=== PATIENT | female | born 1955 | race Caucasian/White ===

== ENCOUNTER 2021-05-03 07:02 | Day surgery (SDC) | payer MEDICARE ==
[~2021-05-03] VITALS: Ht 167.6 cm; Wt 68.0 kg
[~2021-05-03 07:02] MED LIST: AMLODIPINE BESY10 MG PO; HYDROCHLOROT12.5 MG PO; KLOR-CON M2020 MEQ PO; SIMVASTATIN40 MG PO; SYNTHROID150 MCG PO
[2021-05-03] MEDS ORDERED: MUSCLE RELAXANT (07:22)
[2021-05-03 09:01] VITALS: BP 152/69
== END 2021-05-03 09:14 | disposition home or self-care (01) ==
LOC: ENDO 07:02 → ORM 08:00 → ENDO 08:00 → ORM 08:45 → ENDO 09:14 → ORM 09:45
PROVIDERS: ATTEND Surgery
PROC: 0DBM8ZX Excision of Descending Colon, Via Natural or Artificial Opening Endoscopic, Diagnostic (ICD-10-PCS; principal; 2021-05-03)
DX: Z12.11 Encounter for screening for malignant neoplasm of colon (principal); D12.4 Benign neoplasm of descending colon; I10 Essential (primary) hypertension; Z90.49 Acquired absence of other specified parts of digestive tract; Z85.038 Personal history of other malignant neoplasm of large intestine

== ENCOUNTER 2022-04-29 19:48 | Inpatient (IN) | payer MEDICARE ==
[~2022-04-29] VITALS: Ht 167.6 cm; Wt 70.4 kg
[2022-04-29] VITALS (15 sets, daily range): BP systolic 120–161; BP diastolic 62–117
[~2022-04-29 19:48] MED LIST changes: +MUSCLE RELAXANT
[2022-04-29 20:41] LABS: BASO% 0.2 % (0-3); EOS% 0.2 % (0-8); HEMATOCRIT 44.9 % (37.0-47.0); HEMOGLOBIN 14.6 g/dl (12.0-16.0); IMMATURE GRANULOCYTES 0.2 % (0.0-5.0); LYMPH% 3.7 % (15-41); MEAN CELL VOLUME 91.6 fL CALC (80.0-100.0); MEAN CORPUSCULAR HGB 29.8 pG CALC (26.0-32.0); MEAN CORPUSCULAR HGB CONC 32.5 g/dL CAL (32.0-36.0); MONO% 5.5 % (2-13); NEUT# 10.89 thou/uL (2.00-7.15); NEUT% 90.2 % (42-76); RED BLOOD COUNT 4.9 mill/uL (4.20-5.60); RED CELL DISTRI WIDTH 12.2 % (11.5-15.5)
[2022-04-29 20:42] LABS: ALBUMIN 4.6 g/dL (3.2-5.0); ALKALINE PHOSPHATASE 152 u/l (38-126); AMYLASE 167 u/l (30-110); ANION GAP 12 (6-22 (CALC)); BILIRUBIN, TOTAL 0.8 mg/dL (0.02-1.3); BUN 21 mg/dL (8-23); BUN/CREATININE RATIO 33 (12-20 (CALC)); CARBON DIOXIDE 27 mmol/l (22-30); CHLORIDE 103 mmol/l (95-108); CREATININE 0.6 mg/dL (0.5-1.0); GFR FOR AFR.AMER. > 60 ML/MIN (>=60 (CALC)); GFR OTHER RACES > 60 ML/MIN (>=60 (CALC)); LIPASE 913 u/l (23-300); POTASSIUM 4.1 mmol/l (3.5-5.1); SODIUM 138 mmol/l (137-146); TOTAL PROTEIN 7.4 g/dL (6.3-8.2)
[2022-04-29 20:59] LABS: SGOT/AST 1271 u/l (9-36)
[2022-04-29 22:45] LABS: URINE BILIRUBIN - DIPSTICK NEGATIVE (NEGATIVE); URINE BLOOD DIPSTICK NEGATIVE (NEGATIVE); URINE COLOR YELLOW; URINE GLUCOSE - DIPSTICK NEGATIVE (NEGATIVE); URINE KETONE NEGATIVE (NEGATIVE); URINE LEUK ESTERASE NEGATIVE (NEGATIVE); URINE PH 6.5 (4.5-8.0); URINE PROTEIN - DIPSTICK NEGATIVE (NEG-TRACE); URINE UROBILINOGEN - DIPSTICK 0.2 E.U./dL (0.2)
[2022-04-29 22:47] LABS: URINE NITRITE - DIPSTICK NEGATIVE (Negative)
[2022-04-30] VITALS (15 sets, daily range): BP systolic 124–152; BP diastolic 72–94
[2022-04-30 12:07] LABS: ALKALINE PHOSPHATASE 120 u/l (38-126); ANION GAP 7 (6-22 (CALC)); BUN 14 mg/dL (8-23); BUN/CREATININE RATIO 23 (12-20 (CALC)); CARBON DIOXIDE 26 mmol/l (22-30); CHLORIDE 108 mmol/l (95-108); CREATININE 0.6 mg/dL (0.5-1.0); GFR FOR AFR.AMER. > 60 ML/MIN (>=60 (CALC)); GFR OTHER RACES > 60 ML/MIN (>=60 (CALC)); LIPASE 43 u/l (23-300); POTASSIUM 3.5 mmol/l (3.5-5.1); SGOT/AST 376 u/l (9-36); SODIUM 138 mmol/l (137-146); TOTAL PROTEIN 6.1 g/dL (6.3-8.2)
[2022-04-30 12:21] LABS: BASO% 0.2 % (0-3); EOS% 0.6 % (0-8); HEMATOCRIT 39.2 % (37.0-47.0); HEMOGLOBIN 12.7 g/dl (12.0-16.0); IMMATURE GRANULOCYTES 0.2 % (0.0-5.0); LYMPH% 10.7 % (15-41); MEAN CELL VOLUME 94.2 fL CALC (80.0-100.0); MEAN CORPUSCULAR HGB 30.5 pG CALC (26.0-32.0); MEAN CORPUSCULAR HGB CONC 32.4 g/dL CAL (32.0-36.0); MONO% 10.1 % (2-13); NEUT# 4.82 thou/uL (2.00-7.15); NEUT% 78.2 % (42-76); RED BLOOD COUNT 4.16 mill/uL (4.20-5.60); RED CELL DISTRI WIDTH 12.5 % (11.5-15.5)
[2022-04-30 12:30] LABS: ALBUMIN 3.6 g/dL (3.2-5.0); BILIRUBIN, TOTAL 0.2 mg/dL (0.02-1.3)
[2022-05-01] VITALS (8 sets, daily range): BP systolic 115–150; BP diastolic 65–81
[2022-05-01 05:48] LABS: BASO% 0.2 % (0-3); EOS% 1.9 % (0-8); HEMATOCRIT 38.8 % (37.0-47.0); HEMOGLOBIN 12.7 g/dl (12.0-16.0); IMMATURE GRANULOCYTES 0.2 % (0.0-5.0); LYMPH% 20.5 % (15-41); MEAN CELL VOLUME 92.8 fL CALC (80.0-100.0); MEAN CORPUSCULAR HGB 30.4 pG CALC (26.0-32.0); MEAN CORPUSCULAR HGB CONC 32.7 g/dL CAL (32.0-36.0); MONO% 9.6 % (2-13); NEUT# 4.23 thou/uL (2.00-7.15); NEUT% 67.6 % (42-76); RED BLOOD COUNT 4.18 mill/uL (4.20-5.60); RED CELL DISTRI WIDTH 12.2 % (11.5-15.5)
[2022-05-01 07:03] LABS: ALBUMIN 3.6 g/dL (3.2-5.0); ALKALINE PHOSPHATASE 138 u/l (38-126); AMYLASE 37 u/l (30-110); ANION GAP 13 (6-22 (CALC)); BUN 15 mg/dL (8-23); BUN/CREATININE RATIO 26 (12-20 (CALC)); CARBON DIOXIDE 22 mmol/l (22-30); CHLORIDE 108 mmol/l (95-108); CREATININE 0.6 mg/dL (0.5-1.0); GFR FOR AFR.AMER. > 60 ML/MIN (>=60 (CALC)); GFR OTHER RACES > 60 ML/MIN (>=60 (CALC)); LIPASE 31 u/l (23-300); POTASSIUM 3.5 mmol/l (3.5-5.1); SGOT/AST 307 u/l (9-36); SODIUM 140 mmol/l (137-146)
[2022-05-01 07:07] LABS: BILIRUBIN, TOTAL 0.3 mg/dL (0.02-1.3)
[2022-05-02 00:02] VITALS: BP 130/73
[2022-05-02 04:33] VITALS: BP 136/76
[2022-05-02 05:50] LABS: BASO% 0.3 % (0-3); EOS% 2.8 % (0-8); HEMATOCRIT 39.5 % (37.0-47.0); HEMOGLOBIN 13.2 g/dl (12.0-16.0); IMMATURE GRANULOCYTES 0.5 % (0.0-5.0); LYMPH% 21.9 % (15-41); MEAN CELL VOLUME 90.8 fL CALC (80.0-100.0); MEAN CORPUSCULAR HGB 30.3 pG CALC (26.0-32.0); MEAN CORPUSCULAR HGB CONC 33.4 g/dL CAL (32.0-36.0); MONO% 11.1 % (2-13); NEUT# 3.83 thou/uL (2.00-7.15); NEUT% 63.4 % (42-76); RED BLOOD COUNT 4.35 mill/uL (4.20-5.60); RED CELL DISTRI WIDTH 12.2 % (11.5-15.5)
[2022-05-02 06:25] VITALS: BP 135/69
[2022-05-02 06:31] LABS: ALBUMIN 3.7 g/dL (3.2-5.0); ALKALINE PHOSPHATASE 164 u/l (38-126); AMYLASE 39 u/l (30-110); ANION GAP 9 (6-22 (CALC)); BILIRUBIN, TOTAL 0.2 mg/dL (0.02-1.3); BUN 11 mg/dL (8-23); BUN/CREATININE RATIO 18 (12-20 (CALC)); CHLORIDE 106 mmol/l (95-108); CREATININE 0.6 mg/dL (0.5-1.0); GFR FOR AFR.AMER. > 60 ML/MIN (>=60 (CALC)); GFR OTHER RACES > 60 ML/MIN (>=60 (CALC)); LIPASE 36 u/l (23-300); POTASSIUM 3.6 mmol/l (3.5-5.1); SGOT/AST 138 u/l (9-36); SODIUM 139 mmol/l (137-146); TOTAL PROTEIN 6.1 g/dL (6.3-8.2)
[2022-05-02 06:32] LABS: CARBON DIOXIDE 28 mmol/l (22-30)
[2022-05-02] MEDS ORDERED: PROTONIX40 M2 PO (09:28)
[2022-05-02 10:12] VITALS: BP 172/83
[2022-05-02 11:12] VITALS: BP 139/78
[2022-05-02] MEDS ORDERED: WELLBUTRIN XL300 MG PO (11:33)
[2022-05-02] MEDS ORDERED: TRAZODONE100 MG PO (11:33)
[2022-05-02 14:53] VITALS: BP 151/76
[2022-05-02] MEDS ORDERED: CVS FLUTICASON50 MCG (15:32)
[2022-05-02] MEDS ORDERED: NEOMYCIN OP (15:35)
[2022-05-02] MEDS ORDERED: [UNRECOGNIZED DRUG - OTHER] OP (15:35)
[2022-05-02] MEDS ORDERED: 24HR ALLERGY R180 MG PO (15:37)
[2022-05-02] MEDS ORDERED: LORAZEPAM0.5 MG PO (15:38)
[2022-05-02] MEDS ORDERED: SIMVASTATIN40 MG PO (15:48)
== END 2022-05-02 18:08 | disposition home or self-care (01) | DRG 440 ==
LOC: ED 19:48 → ED-I 23:44 → ED 23:57 → MS2 23:58
PROVIDERS: Emergency Medicine; ADMIT Internal Medicine; ATTEND Internal Medicine
DX: K85.90 Acute pancreatitis without necrosis or infection, unspecified (principal); I10 Essential (primary) hypertension; E03.9 Hypothyroidism, unspecified; E78.5 Hyperlipidemia, unspecified; Z85.038 Personal history of other malignant neoplasm of large intestine; Z90.49 Acquired absence of other specified parts of digestive tract; Z88.0 Allergy status to penicillin
CPT/HCPCS: J1956; Q9967